=== PATIENT | female | born 1990 | race Caucasian/White ===

== ENCOUNTER 2019-09-05 10:38 | Emergency (ER) | payer OTHER ==
[2019-09-05 10:45] VITALS: TEMP 99.9
[2019-09-05] MEDS ORDERED: SODIUM CHLORIDE 0.9% 1,000 ML IV STA (10:57)
[2019-09-05] MEDS ORDERED: ACETAMINOPHEN TAB 500 MG TAB PO STA (10:57)
[2019-09-05] MEDS ORDERED: ONDANSETRON ODT 4 MG TAB PO STA (10:57)
--- NOTE | 2019-09-05 11:00 | ED ---
Fever HPI - General Chief Complaint: Fever Stated Complaint: Vomiting/Fever Time Seen by Provider: 09/05/19 10:46 Source: patient Mode of arrival: ambulatory Limitations: no limitations - History of Present Illness Initial Comments: Patient is a 29-year-old female presenting to the emergency Department with complaints of a fever as well as cough and nausea and vomiting for the past 2 days. Patient states she has not been able to eat and drink much secondary to the nausea. She's been taking Tylenol and NyQuil for the fevers. She does have a history of mild asthma. No other pertinent past medical history. She denies chest pain, shortness of breath, abdominal pain. She has no other complaints at this time. Upon arrival to the ER, patient was febrile at 99.9, slightly tach at 112, rest of vitals normal. - Related Data Previous Rx's Medication Instructions Recorded Acetaminophen with Codeine 1 each PO Q4HR PRN #30 tablet 11/12/13 [Acetaminophen with Codeine #3] Azithromycin [Zithromax] 500 mg PO DAILY #7 tab 11/12/13 Oseltamivir [Tamiflu] 75 mg PO Q12HR #10 cap 09/05/19 methylPREDNISolone [Medrol Dose 4 mg PO DIRECTED #1 pack 09/05/19 Pack] Allergies Allergy/AdvReac Type Severity Reaction Status Date / Time Penicillins Allergy Swelling Verified 09/05/19 10:45 Review of Systems ROS Statement: Those systems with pertinent positive or pertinent negative responses have been documented in the HPI. ROS Other: All systems not noted in ROS Statement are negative. Past Medical History Past Medical History: Asthma Additional Past Medical History / Comment(s): Frequent otitis media with myringotomy tubes History of Any Multi-Drug Resistant Organisms: None Reported Additional Past Surgical History / Comment(s): right wrist surgery, bilateral myringotomy tubes Past Psychological History: No Psychological Hx Reported, Depression Smoking Status: Current every day smoker Past Alcohol Use History: None Reported Past Drug Use History: None Reported General Exam - General Exam Comments Initial Comments: GENERAL: Well-appearing, well-nourished and in no acute distress. HEAD: Atraumatic, normocephalic. EYES: Pupils equal round and reactive to light, extraocular movements intact, sclera anicteric, conjunctiva are normal. ENT: TMs normal, nares patent, oropharynx clear without exudates. Moist mucous membranes. NECK: Normal range of motion, supple without lymphadenopathy or JVD. LUNGS: Breath sounds clear to auscultation bilaterally and equal. No wheezes rales or rhonchi. HEART: Tachycardia rate and rhythm without murmurs, rubs or gallops. ABDOMEN: Soft, nontender, normoactive bowel sounds. No guarding, no rebound. No masses appreciated. : Deferred EXTREMITIES: Normal range of motion, no pitting or edema. No clubbing or cyanosis. NEUROLOGICAL: Normal speech, normal gait. PSYCH: Normal mood, normal affect. SKIN: Warm, Dry, normal turgor, no rashes or lesions noted. Limitations: no limitations Course Vital Signs 09/05/19 09/05/19 09/05/19 10:42 10:45 10:48 Temperature 99.9 F H Pulse Rate 112 H 98 Respiratory 18 20 18 Rate Blood Pressure 119/82 113/71 O2 Sat by Pulse 98 97 Oximetry 09/05/19 09/05/19 09/05/19 11:42 11:48 12:00 Temperature Pulse Rate 93 90 Respiratory 16 16 Rate Blood Pressure 112/77 112/77 114/66 O2 Sat by Pulse 97 97 97 Oximetry Medical Decision Making - Medical Decision Making Patient is a 29-year-old female presenting with fever, nausea, vomiting, cough for the past 3 days. History of mild asthma. Patient was afebrile and tachycardia upon arrival. Exam is unremarkable. Chest x-ray shows evidence for bronchitis, no other acute abnormalities. Patient's influenza test is positive. Patient was given some fluids as well as Tylenol and Zofran. She reports improvement in her symptoms. Patient is stable for discharge at this time. She'll be sent home with Tamiflu as well as a steroid Dosepak. Patient will continue to increase fluid intake. Return parameters were discussed with the patient she verbalized understanding. She is in agreement with this plan of care. - Lab Data Lab Results 09/05/19 Range/Units 11:20 Influenza Type A RNA Not Detected (Not Detectd) Influenza Type B (PCR) Detected H (Not Detectd) Disposition Clinical Impression: Influenza Disposition: HOME SELF-CARE Condition: Stable Instructions (If sedation given, give patient instructions): Influenza (ED) Additional Instructions: Please return to the Emergency Department if symptoms worsen or any other concerns. Continue with Tylenol or Motrin for fever control. Increase fluid intake. Take the steroids and Tamiflu as directed. Follow up with PCP. Prescriptions: methylPREDNISolone [Medrol Dose Pack] 4 mg PO DIRECTED #1 pack Oseltamivir [Tamiflu] 75 mg PO Q12HR #10 cap Is patient prescribed a controlled substance at d/c from ED?: No Referrals: Bharati Bliss MD [Primary Care Provider] - 1-2 days
--- NOTE | 2019-09-05 12:08 | XR ---
EXAMINATION TYPE: XR chest 2V DATE OF EXAM: 09/05/2019 COMPARISON: Prior chest x-ray 07/15/2010 HISTORY: Fever and cough TECHNIQUE: Frontal and lateral views of the chest are obtained. FINDINGS: There is no focal air space opacity, pleural effusion, or pneumothorax seen. The cardiac silhouette size is within normal limits. There is bronchial wall thickening. The osseous structures are intact, there is a spinal curvature patient may be rotated. IMPRESSION: Correlate for bronchitis.
[2019-09-05 12:26] VITALS: BP 114/66; PULSE 90
[2019-09-05 12:30] VITALS: RESP 20
== END 2019-09-05 12:35 | disposition home or self-care (01) ==
LOC: EC 10:38
DX: J11.1 Influenza due to unidentified influenza virus with other respiratory manifestations (principal); F17.200 Nicotine dependence, unspecified, uncomplicated; Z88.0 Allergy status to penicillin
CPT/HCPCS: 71046; 87502; 96360; 99283